=== PATIENT | male | born 1950 | race Caucasian/White ===

== ENCOUNTER 2022-05-30 03:26 | Inpatient (IN) | payer OTHER ==
[2022-05-30 03:31] VITALS: BMI 26.7
[2022-05-30] MEDS ORDERED: SODIUM CHLORIDE 0.9% 500 ML INFUS.BAG IV ONE (04:26)
[2022-05-30] MEDS ORDERED: ACETAMINOPHEN 1000 MG/100 ML BAG IVPB ONE ×2 (04:26→19:44)
[2022-05-30] MEDS ORDERED: ACETAMINOPHEN INJECTION 100 ML IVPB ONE ×2 (05:08→19:49)
[2022-05-30 05:14] LABS: HEMATOCRIT 17.5 % (35.4-49); MCH 33.1 pg (25.7-33.7); MCHC 33.8 g/dl (32.0-35.9); MEAN CELL VOLUME 98.1 fl (80-96); MEAN PLT VOLUME 8.8 fl (7.5-11.1); PLATELET COUNT 308 10^3/uL (134-434); RBC 1.78 M/mm3 (4.00-5.60); RDW 13.2 % (11.9-15.9); WHITE BLOOD COUNT 20.6 K/mm3 (4.0-10.0)
[2022-05-30 05:30] LABS: CHLORIDE 101 mmol/L (98-107); SODIUM 133 mmol/L (136-145)
[2022-05-30 05:32] LABS: ALBUMIN 3.3 g/dl (3.4-5.0); ANION GAP 10 MMOL/L (8-16); BLOOD UREA NITROGEN 48.1 mg/dL (7-18); CALCIUM 8.6 mg/dL (8.5-10.1); CO2 22 mmol/L (21-32); GLUCOSE,RANDOM 257 mg/dL (74-106)
[2022-05-30 05:35] LABS: SGOT/AST 14 U/L (15-37); SGPT/ALT 19 U/L (13-61)
[2022-05-30 05:37] LABS: BILIRUBIN,TOTAL 0.2 mg/dL (0.2-1); TOT PROT 5.9 g/dl (6.4-8.2)
[2022-05-30 05:38] LABS: ALK PHOS 67 U/L (45-117)
[2022-05-30 06:06] LABS: HEMOGLOBIN 5.9 GM/dL (11.7-16.9)
[2022-05-30] MEDS ORDERED: PANTOPRAZOLE SODIUM 40 MG VIAL IVPUSH ONE (09:00)
[2022-05-30 09:28] LABS: URINE APPEARANCE CLEAR; URINE BILIRUBIN NEGATIVE (NEGATIVE); URINE COLOR YELLOW; URINE GLUCOSE (UA) 3+ (NEGATIVE); URINE KETONE TRACE (NEGATIVE); URINE LEUK ESTERASE NEGATIVE (NEGATIVE); URINE NITRITE NEGATIVE (NEGATIVE); URINE PROTEIN NEGATIVE (NEGATIVE); URINE UROBILINOGEN 0.2 mg/dL (0.2-1.0)
[2022-05-30 10:28] LABS: ANISOCYTOSIS 1+
[2022-05-30] MEDS ORDERED: PANTOPRAZOLE SODIUM 40 MG VIAL IVPB ONE (13:14)
[2022-05-30] MEDS ORDERED: PANTOPRAZOLE SODIUM 80 MG/200 ML BAG IVPB ONE (13:15)
[2022-05-30] MEDS ORDERED: PANTOPRAZOLE SODIUM 40 MG/100 ML BAG IVPB ONE (13:54)
[2022-05-30] MEDS: PANTOPRAZOLE SODIUM 160 MG in SODIUM CHLORIDE 290 ML IVPB SCH (14:48)
[2022-05-30] MEDS: SODIUM CHLORIDE 1,000 ML IV SCH (14:48)
[2022-05-31 08:00] LABS: CALCIUM 8.2 mg/dL (8.5-10.1)
[2022-05-31 08:03] LABS: CREATININE 0.6 mg/dL (0.55-1.3)
[2022-05-31 08:05] LABS: BILIRUBIN,TOTAL 0.4 mg/dL (0.2-1); TOT PROT 5.5 g/dl (6.4-8.2)
[2022-05-31 08:18] LABS: BLOOD UREA NITROGEN 17.6 mg/dL (7-18)
[2022-05-31] MEDS ORDERED: FLU VACC QS2022-23(6MOS UP)/PF 60 MCG/0.5 ML SYRINGE IM ONE (08:23)
[2022-05-31 09:00] LABS: BASO % 0.2 % (0-2.0); EOS % 0.3 % (0-4.5); HEMATOCRIT 21.2 % (35.4-49); LYMPH % 18.4 % (8-40); MCH 31.7 pg (25.7-33.7); MCHC 33.2 g/dl (32.0-35.9); MEAN CELL VOLUME 95.4 fl (80-96); MEAN PLT VOLUME 8.8 fl (7.5-11.1); MONO % 11.9 % (3.8-10.2); NEUT % 69.2 % (42.8-82.8); PLATELET COUNT 272 10^3/uL (134-434); RBC 2.22 M/mm3 (4.00-5.60); WHITE BLOOD COUNT 18.1 K/mm3 (4.0-10.0)
[2022-05-31] MEDS ORDERED: PANTOPRAZOLE SODIUM 40 MG/100 ML BAG IVPB ONE (11:06)
[2022-05-31] MEDS: PANTOPRAZOLE SODIUM 160 MG in SODIUM CHLORIDE 290 ML IVPB SCH (12:37)
[2022-05-31] MEDS: SODIUM CHLORIDE 1,000 ML IV SCH (17:22)
[2022-05-31 21:53] LABS: BASO % 0.2 % (0-2.0); EOS % 0.7 % (0-4.5); HEMATOCRIT 22.1 % (35.4-49); HEMOGLOBIN 7.6 GM/dL (11.7-16.9); LYMPH % 22.8 % (8-40); MCH 31.8 pg (25.7-33.7); MCHC 34.2 g/dl (32.0-35.9); MEAN CELL VOLUME 93.1 fl (80-96); MEAN PLT VOLUME 8.2 fl (7.5-11.1); MONO % 10.4 % (3.8-10.2); NEUT % 65.9 % (42.8-82.8); PLATELET COUNT 258 10^3/uL (134-434); RBC 2.38 M/mm3 (4.00-5.60); RDW 14.4 % (11.9-15.9); WHITE BLOOD COUNT 13.7 K/mm3 (4.0-10.0)
[2022-05-31] MEDS: INSULIN SLIDING SCALE (NOVOLOG) 1 VIAL SQ SCH (22:44)
[2022-06-01] MEDS: PANTOPRAZOLE SODIUM 160 MG in SODIUM CHLORIDE 290 ML IVPB SCH (03:31)
[2022-06-01] MEDS: INSULIN SLIDING SCALE (NOVOLOG) 1 VIAL SQ SCH ×4 (06:12→21:50)
[2022-06-01 10:00] LABS: BASO % 0.5 % (0-2.0); EOS % 1.3 % (0-4.5); HEMATOCRIT 25.8 % (35.4-49); HEMOGLOBIN 8.9 GM/dL (11.7-16.9); LYMPH % 23.7 % (8-40); MCH 32.4 pg (25.7-33.7); MCHC 34.3 g/dl (32.0-35.9); MEAN CELL VOLUME 94.3 fl (80-96); MEAN PLT VOLUME 8.7 fl (7.5-11.1); MONO % 9.7 % (3.8-10.2); NEUT % 64.8 % (42.8-82.8); PLATELET COUNT 270 10^3/uL (134-434); RBC 2.74 M/mm3 (4.00-5.60); RDW 14.5 % (11.9-15.9); WHITE BLOOD COUNT 14.2 K/mm3 (4.0-10.0)
[2022-06-01 10:15] LABS: CALCIUM 8.1 mg/dL (8.5-10.1)
[2022-06-01 10:16] LABS: ALBUMIN 2.7 g/dl (3.4-5.0); BLOOD UREA NITROGEN 13.4 mg/dL (7-18)
[2022-06-01 10:18] LABS: CREATININE 0.6 mg/dL (0.55-1.3)
[2022-06-01 10:20] LABS: TOT PROT 5.3 g/dl (6.4-8.2)
[2022-06-01 10:21] LABS: BILIRUBIN,TOTAL 0.5 mg/dL (0.2-1)
[2022-06-01] MEDS: KCL 10 MEQ IVPB 10 MEQ/100 ML INFUS.BAG IVPB SCH ×2 (11:54→14:07)
[2022-06-01] MEDS ORDERED: ACETAMINOPHEN 1000 MG/100 ML BAG IVPB PRN (20:51)
[2022-06-01] MEDS: PANTOPRAZOLE 40 MG TABLET PO SCH (21:47)
[2022-06-02] MEDS: SODIUM CHLORIDE 1,000 ML IV SCH ×2 (01:10→20:51)
[2022-06-02] MEDS: INSULIN SLIDING SCALE (NOVOLOG) 1 VIAL SQ SCH ×4 (06:21→22:03)
[2022-06-02 09:10] LABS: BASO % 0.6 % (0-2.0); EOS % 2.7 % (0-4.5); HEMOGLOBIN 8.5 GM/dL (11.7-16.9); LYMPH % 23.1 % (8-40); MCH 32.5 pg (25.7-33.7); MCHC 34.1 g/dl (32.0-35.9); MEAN CELL VOLUME 95.1 fl (80-96); MEAN PLT VOLUME 8.9 fl (7.5-11.1); MONO % 7.2 % (3.8-10.2); NEUT % 66.4 % (42.8-82.8); PLATELET COUNT 297 10^3/uL (134-434); RBC 2.62 M/mm3 (4.00-5.60); RDW 14.8 % (11.9-15.9); WHITE BLOOD COUNT 11.6 K/mm3 (4.0-10.0)
[2022-06-02 09:32] LABS: ALBUMIN 2.4 g/dl (3.4-5.0); BLOOD UREA NITROGEN 9.5 mg/dL (7-18); CREATININE 0.5 mg/dL (0.55-1.3)
[2022-06-02 09:33] LABS: BILIRUBIN,TOTAL 0.6 mg/dL (0.2-1)
[2022-06-02] MEDS: PANTOPRAZOLE 40 MG TABLET PO SCH ×2 (10:00→22:03)
[2022-06-03 07:54] LABS: ALBUMIN 2.5 g/dl (3.4-5.0); BASO % 0.5 % (0-2.0); BLOOD UREA NITROGEN 6.8 mg/dL (7-18); EOS % 2.9 % (0-4.5); HEMATOCRIT 27.6 % (35.4-49); HEMOGLOBIN 9.4 GM/dL (11.7-16.9); LYMPH % 27.3 % (8-40); MCH 31.9 pg (25.7-33.7); MCHC 33.9 g/dl (32.0-35.9); MEAN CELL VOLUME 94.3 fl (80-96); MEAN PLT VOLUME 8.5 fl (7.5-11.1); MONO % 9.5 % (3.8-10.2); NEUT % 59.8 % (42.8-82.8); PLATELET COUNT 335 10^3/uL (134-434); RBC 2.93 M/mm3 (4.00-5.60); RDW 14.6 % (11.9-15.9); WHITE BLOOD COUNT 10.3 K/mm3 (4.0-10.0)
[2022-06-03 07:57] LABS: CREATININE 0.6 mg/dL (0.55-1.3)
[2022-06-03 07:59] LABS: BILIRUBIN,TOTAL 0.4 mg/dL (0.2-1); TOT PROT 5.2 g/dl (6.4-8.2)
[2022-06-03] MEDS: INSULIN SLIDING SCALE (NOVOLOG) 1 VIAL SQ SCH ×4 (08:00→21:04)
[2022-06-03] MEDS: PANTOPRAZOLE 40 MG TABLET PO SCH ×2 (10:37→21:04)
[2022-06-03] MEDS: SODIUM CHLORIDE 1,000 ML IV SCH (17:30)
[2022-06-03] MEDS: traMADol HCL 50 MG TABLET PO PRN (17:59)
[2022-06-04 07:40] LABS: HEMATOCRIT 29.1 % (35.4-49); HEMOGLOBIN 9.9 GM/dL (11.7-16.9); MCH 32.3 pg (25.7-33.7); MCHC 33.9 g/dl (32.0-35.9); MEAN CELL VOLUME 95.2 fl (80-96); MEAN PLT VOLUME 8.6 fl (7.5-11.1); PLATELET COUNT 407 10^3/uL (134-434); RBC 3.06 M/mm3 (4.00-5.60); RDW 14.8 % (11.9-15.9); WHITE BLOOD COUNT 12.1 K/mm3 (4.0-10.0)
[2022-06-04 08:05] LABS: BLOOD UREA NITROGEN 9.7 mg/dL (7-18); CALCIUM 8.5 mg/dL (8.5-10.1)
[2022-06-04 08:06] LABS: ALBUMIN 2.6 g/dl (3.4-5.0)
[2022-06-04] MEDS: INSULIN SLIDING SCALE (NOVOLOG) 1 VIAL SQ SCH ×4 (08:08→21:01)
[2022-06-04 08:09] LABS: CREATININE 0.6 mg/dL (0.55-1.3)
[2022-06-04 08:10] LABS: BILIRUBIN,TOTAL 0.4 mg/dL (0.2-1); TOT PROT 5.7 g/dl (6.4-8.2)
[2022-06-04] MEDS ORDERED: REGADENOSON 0.4 MG/5 ML PRE-FILLED SYRINGE IVPUSH ONE ×2 (09:30→10:14)
[2022-06-04] MEDS: PANTOPRAZOLE 40 MG TABLET PO SCH ×2 (09:58→21:01)
[2022-06-04] MEDS: SODIUM CHLORIDE 1,000 ML IV SCH (16:27)
[2022-06-04] MEDS: traMADol HCL 50 MG TABLET PO PRN (20:59)
[2022-06-05] MEDS: INSULIN SLIDING SCALE (NOVOLOG) 1 VIAL SQ SCH ×3 (07:07→17:21)
[2022-06-05 08:35] LABS: HEMATOCRIT 29.3 % (35.4-49); HEMOGLOBIN 9.7 GM/dL (11.7-16.9); MCH 31.8 pg (25.7-33.7); MEAN CELL VOLUME 96.1 fl (80-96); MEAN PLT VOLUME 8.6 fl (7.5-11.1); PLATELET COUNT 456 10^3/uL (134-434); RBC 3.04 M/mm3 (4.00-5.60); RDW 14.3 % (11.9-15.9); WHITE BLOOD COUNT 11.8 K/mm3 (4.0-10.0)
[2022-06-05] MEDS: PANTOPRAZOLE 40 MG TABLET PO SCH (09:36)
[2022-06-05] MEDS ORDERED: CEFTRIAXONE 1 GM in DEXTROSE 5%-WATER - 50 ML IVPB ONE (09:57)
[2022-06-05] MEDS ORDERED: TETRACAINE/BENZOCAINE/BUTAMBEN 20 GM SPR TP ONE (10:56)
[2022-06-05 13:40] VITALS: RESP 18
[2022-06-05 18:22] VITALS: BP 103/56; PULSE 83; TEMP 98.4
[2022-06-06] MEDS ORDERED: PANTOPRAZOLE 40 MG TABLET PO SCH (10:00)
[2022-06-06] MEDS ORDERED: CEPHALEXIN MONOHYDRATE 500 MG CAPSULE (UD) PO SCH (10:00)
== END 2022-06-05 18:51 | disposition home or self-care (01) | DRG 377 ==
LOC: JER 03:26 → JERBED 11:20 → J4S 05-31 19:59
PROVIDERS: ADMIT Family Medicine; ATTEND Family Medicine
PROC: 30233N1 Transfusion of Nonautologous Red Blood Cells into Peripheral Vein, Percutaneous Approach (ICD-10-PCS; 2022-05-30)
PROC: 0DB78ZX Excision of Stomach, Pylorus, Via Natural or Artificial Opening Endoscopic, Diagnostic (ICD-10-PCS; principal; 2022-06-05 13:00)
DX: K92.2 Gastrointestinal hemorrhage, unspecified (principal); I21.4 Non-ST elevation (NSTEMI) myocardial infarction; D62 Acute posthemorrhagic anemia; K29.00 Acute gastritis without bleeding; I10 Essential (primary) hypertension; E78.5 Hyperlipidemia, unspecified; D72.829 Elevated white blood cell count, unspecified; E11.9 Type 2 diabetes mellitus without complications; R01.1 Cardiac murmur, unspecified; R00.0 Tachycardia, unspecified; K29.40 Chronic atrophic gastritis without bleeding; K29.80 Duodenitis without bleeding; F17.210 Nicotine dependence, cigarettes, uncomplicated
CPT/HCPCS: 0241U-QW; 36415; 36430; 71045-TC-FY; 71260-TC; 74177-TC; 78452-TC; 80053; 81003; 82272; 82550; 82553; 82962; 83735; 84484; 85025; 85027; 86850; 86900; 86901; 86922; 87040; 87086; 88305-TC; 93005; 93010; 93017; 93306-TC; 99285-25; A9502; J2785; P9058; Q9967